=== PATIENT | female | born 1955 | race Caucasian/White ===

== ENCOUNTER → 2017-12-09 | Outpatient (CLI) | payer BC | END | disposition home or self-care (01) | LOC: CVU 12:49 | PROVIDERS: ATTEND Family Medicine | DX: I83.91 Asymptomatic varicose veins of right lower extremity (principal); I87.8 Other specified disorders of veins | CPT/HCPCS: 93970 ==

== ENCOUNTER → 2018-03-27 | Outpatient (CLI) | payer BC | END | disposition home or self-care (01) | LOC: CVU 11:56 | PROVIDERS: ATTEND Surgery Vascular Surgery | DX: I83.022 Varicose veins of left lower extremity with ulcer of calf (principal); I87.2 Venous insufficiency (chronic) (peripheral); R60.9 Edema, unspecified; M79.609 Pain in unspecified limb | CPT/HCPCS: 93971 ==